=== PATIENT | male | born 1980 | race Caucasian/White ===

== ENCOUNTER 2022-02-28 07:36 | Observation (INO) | payer BC, SELFPAY ==
[2022-02-28 07:37] VITALS: BP 116/64; PULSE 95; RESP 18; TEMP 37.2; O2SAT 96; BMI 30.6
--- NOTE | 2022-02-28 07:46 | CT_ITS ---
STUDY: CT ABDOMEN AND PELVIS WITHOUT CONTRAST REASON FOR EXAM: Male, 41 years old. Right flank pain, fullness, back pain. Severe back pain. RADIATION DOSAGE (If Supplied By Facility): CTDIvol = ( 8.79 ) mGy, DLP = ( 511.88 ) mGycm TECHNIQUE: Transaxial images were obtained from the dome of the diaphragm to the symphysis pubis without oral contrast, and without intravenous contrast. Sagittal and coronal images were reconstructed. Individualized dose optimization techniques were used for this CT. COMPARISON: None. FINDINGS: Minimal degree of right basilar linear atelectasis. The visualized portions of the heart are within normal limits. Normal liver. Normal gallbladder and extrahepatic biliary system. Normal spleen. Normal pancreas. Normal bilateral adrenal glands. Normal right kidney. Normal left kidney. There is a small hiatal hernia. Normal small intestine. There are scattered colonic diverticula consistent with diverticulosis. There are surgical clips in the region of the appendix consistent with a prior appendectomy. Normal abdominal aorta. Normal inferior vena cava. Normal retroperitoneum. Normal urinary bladder. There is a small umbilical hernia containing fat. Multilevel spondylosis of the lumbar spine. There is straightening of the normal lumbar lordosis. Moderate degree of central disc herniation at the L4-L5 level. CT/Abdomen/Pelvis without Cont IMPRESSION: Minimal degree of right basilar linear atelectasis. Straightening of the normal lumbar lordosis. Disc bulge at the L4-L5 level causing moderate degree of central canal stenosis. Electronically Signed: Abner Renner MD at 8:36 EST ,
--- NOTE | 2022-02-28 07:47 | ED.VIS.BACK ---
HPI History of Present Illness Chief Complaint: Back Detail of Chief Complaint: Back pain x3 weeks Informant: patient Narrative Narrative: Patient presents the emergency department complaint of back pain for the last 3 weeks. Patient states that he saw Dr. Jackson in the office and had plain x-rays that show some degenerative changes or degenerative disc disease. Patient has been doing physical therapy x2 and was supposed to do it today. Patient with severe pain today and unable to walk because of the amount of pain that he was having. Patient denies loss of bowel or bladder function. He does describe pain radiating down the back of his leg to about the knee. He has never had issues like this before and has never had surgery on his back. Patient denies any trauma to his back. Pain is 10 out of 10 with any movement. PFSH PFSH Home Medications acetaminophen 500 mg tablet 1,000 - 1,500 mg PO Q6H PRN Pain 02/28/22 [History Last Taken 02/28/22] naproxen sodium 220 mg tablet 220 mg PO DAILY PAIN 02/28/22 [History Last Taken 02/28/22] Allergy/AdvReac Type Severity Reaction Status Date / Time No Known Allergies Allergy Verified 02/28/22 07:39 Surgical History (Updated 02/28/22 @ 07:41 by Imelda Aldana) Hx of appendectomy Social History Smoking Status: Never smoker ROS ROS ED Review of Systems ROS Unobtainable: other Constitutional Constitutional ED: Reports lethargy; Denies chills, fever(s), sweats or weight loss Eyes Eyes: Denies blurry vision, change in vision or diplopia ENT ENT ED: Denies rhinorrhea or sore throat Cardiovascular Cardiovascular: Denies chest pain, orthopnea or racing heartbeat Respiratory/Chest Respiratory/Chest: Denies cough, dyspnea, dyspnea on exertion, orthopnea or sputum Gastrointestinal Gastrointestinal: Denies abdominal pain, diarrhea, nausea or vomiting Genitourinary Genitourinary ED: Denies dysuria, hematuria or urinary frequency Musculoskeletal Musculoskeletal: Reports back pain; Denies arthralgias, myalgias or neck pain Integumentary Denies abscess, Abrasions or rash Neurologic Neurologic: Denies headache(s) or weakness Psychiatric Psychiatric: Denies anxiety, depression or suicidal thoughts Endocrine Endocrinology: Denies polydipsia, polyphagia or polyuria Hematologic/Lymphatic Hematologic/Lymphatic: Denies easy bleeding, easy bruising or lymphadenopathy Allergic/Immunologic Allergic/Immunologic ED: Denies mouth swelling, tongue swelling or urticaria EXAM Physical Exam Const Vital Signs: 02/28/22 07:37 Temperature 99.0 F Temperature Source Temporal Pulse Rate 95 Respiratory Rate 18 Blood Pressure 116/64 Blood Pressure Mean 81 Pulse Ox 96 Oxygen Delivery Method Room Air Positive well nourished and well developed General Appearance ED: well developed and NAD HEENT Reports TM's clear and moist mucous membranes normocephalic and atraumatic; Negative for trauma or tenderness Tympanic Membrane ED: Yes TM's clear Eyes PERRL and EOMs intact bilaterally General Eye ED: Negative for pale conjunctiva or scleral icterus Neck no lymphadenopathy, supple and no JVD General: Negative for tenderness Chest Wall inspection of chest normal and palpation of chest normal Chest: Negative for tenderness Resp normal respiratory effort and clear to auscultation bilaterally Effort and Inspection: Negative for respiratory distress or pain with movement Auscultation: Negative for rhonchi, wheezes or diminished lung sounds Cardio regular rate, regular rhythm, S1 normal heart sound, S2 normal heart sound and no murmurs Peripheral Pulses: pulses 2+ throughout GI normal to inspection, nondistended, normoactive bowel sounds, soft to palpation, non-tender, non-distended and no masses Back/Spine Back/Spine Narrative: Patient with tenderness over the lower lumbar spine over L3, 4 and 5. There is no erythema or warmth noted to his back. There is some fullness to the right paraspinal musculature on the right. Patient does have positive straight leg raises bilaterally and while supine at about 30 degrees. Deep tendon reflexes are plus 2 out of 4 bilaterally at the patella and Achilles. Patient has normal L5 extension bilaterally. Patient has normal sensation to light touch. Good strength both lower extremities. Extremity normal to inspection General Extremety ED: Negative for edema General Extremity: Negative for edema Neuro oriented x3, CN's II-XII intact bilaterally, no sensory deficits noted and gait normal Sensorium / Orientation: awake, alert, oriented to person, oriented to place and oriented to time Motor Exam: strength 5/5 throughout and strength abnormal Psych mental status grossly normal Skin no rashes or lesions noted and no wounds MDM MDM MDM Narrative Medical decision making narrative: IV line established on arrival. Patient was medicated Dilaudid and Zofran. Basic labs were obtained and were normal. CT scan of the abdomen pelvis obtained showed a disc bulge at L4-5 level causing moderate degree of central canal stenosis. Patient continues to experience significant pain. He was given Valium 4 mg p.o. Case discussed with hospitalist will evaluate patient for admission for intractable back pain. Given his symptoms for more than 3 weeks and worsening pain and symptoms felt he may require an MRI during this stay to evaluate further. He has no red flag symptoms of cauda equina currently. Hospitalist will admit. Lab Data Attestation: I reviewed the patient's lab results. Labs: Laboratory Results - last 24 hr 02/28/22 02/28/22 08:09 08:09 WBC 6.7 RBC 5.10 Hgb 16.4 Hct 48.3 MCV 94.7 H MCH 32.2 H MCHC 34.0 RDW Std Deviation 42.6 RDW Coeff of Ce 12.2 Plt Count 192 MPV 10.3 Immature Gran % (Auto) 1.200 H Neut % (Auto) 63.2 Lymph % (Auto) 22.6 [place] % (Auto) 10.6 H Eos % (Auto) 1.8 Baso % (Auto) 0.6 Absolute Neuts (auto) 4.2 Absolute Lymphs (auto) 1.51 Nucleated RBC % 0 Sodium 142 Potassium 4.0 Chloride 110 H Carbon Dioxide 25.0 Anion Gap 7 BUN 20 H Creatinine 0.92 Estim Creat Clear Calc 118.32 Est GFR (MDRD) Af Amer 118 Est GFR (MDRD) Non-Af 98 BUN/Creatinine Ratio 21.8 H Glucose 104 Calcium 8.5 Radiography Diagnostic Testing: Clinical Impression(s) from Imaging Studies Abdomen/Pelvis CT 02/28/22 07:46 IMPRESSION: Minimal degree of right basilar linear atelectasis. Straightening of the normal lumbar lordosis. Disc bulge at the L4-L5 level causing moderate degree of central canal stenosis. Electronically Signed: Abner Renner MD at 8:36 EST , Discharge Plan Triage Chief Complaint: Back ED Provider: Soraya Nixon Dx/Rx/DC Orders Clinical Impression: Intractable back pain, Acute lumbar radiculopathy Prescriptions: No Action acetaminophen 500 mg Tablet 1,000 - 1,500 mg PO Q6H PRN (Reason: Pain) naproxen sodium 220 mg Tablet 220 mg PO DAILY Primary Care Provider: Gutierrez Jackson Referrals: Gutierrez Jackson MD [Primary Care Provider] - Disposition Disposition: Acute Care [facility]
[2022-02-28] MEDS: Ondansetron 4 MG/2 ML Vial IV (08:05)
[2022-02-28] MEDS: 0.9% Normal Saline 1,000 ML 15 ML IV (08:05)
[2022-02-28] MEDS: HYDROcodone Bitartrate/Apap 5/325 Tablet PO (08:05)
[2022-02-28 08:17] LABS: Absolute Lymphocyte Count 1.51 X10^3/uL (0.83-4.51); Absolute Neutrophil Count 4.2 X10^3/uL (2.0-7.7); Basophil# 0.04 X10^3/uL; Basophil% 0.6 % (0-1); Eosinophil# 0.12 X10^3/uL; Eosinophils% 1.8 % (0-5); Hematocrit 48.3 % (40-54); Hemoglobin 16.4 g/dL (13.0-16.5); Lymphocyte # 1.51 X10^3/ul (0.83-4.51); Lymphocyte % 22.6 % (19-41); Mean Corpuscular Hgb 32.2 pg (27.0-32.0); Mean Corpuscular Volume 94.7 fL (80-94); Mean Platelet Vol. 10.3 fl (6.2-12.0); Monocyte# 0.71 X10^3/uL; Monocyte% 10.6 % (0-10); NRBC Flagged by Analyzer 0 % (0-5); Neutrophil # 4.21 X10^3/uL (2.7-7.7); Neutrophil % 63.2 % (47-70); Platelet Count 192 K/mm3 (150-450); RBC Distribution Width CV 12.2 % (11.6-14.6); RBC Distribution Width SD 42.6 fl (35.1-43.9); White Blood Count 6.7 K/mm3 (4.4-11.0)
[2022-02-28 08:32] LABS: Anion Gap 7 (5-15); BUN 20 mg/dL (7-18); BUN/Creat Ratio 21.8 RATIO (10-20); Calcium,Total 8.5 mg/dL (8.5-10.1); Chloride 110 mmol/L (98-107); Creatinine, Serum 0.92 mg/dL (0.70-1.30); EST Glomerular Filtration Rate 98 mL/min (>60); Est Glom Filt Rate - Afr Amer 118 mL/min (>60); Estimated Creatinine Clearance 118.32 ml/min; Glucose 104 mg/dL (74-106); Sodium Level 142 mmol/L (136-145)
[2022-02-28] MEDS: diazePAM 2 MG Tablet 4 MG PO (10:17)
--- NOTE | 2022-02-28 10:19 | MRI_ITS ---
STUDY: MRI LUMBAR SPINE WITHOUT CONTRAST REASON FOR EXAM: Male, 41 years old. SEVERE L4-5 radiculopathy -- suspected herniated disc TECHNIQUE: Standardized fat and water weighted pulse sequences were obtained in the sagittal and axial planes. COMPARISON: CT abdomen and pelvis without contrast 02/28/2022. FINDINGS: T11-T12 and T12-L1: (Sagittal only). Normal endplates. Normal disc height, hydration and morphology. No ventral extradural defects. Normal central canal and bilateral intervertebral neural foramina. Normal lumbar lordosis. There is no substantial scoliosis. Normal conus medullaris that terminates at the T12-L1 disc space level. L1-2: Normal endplates. Normal disc height, hydration and morphology. Normal bilateral facet joints. Normal central canal and bilateral lateral recesses. Normal bilateral intervertebral neural foramina. L2-3: Normal endplates. Normal disc height, hydration and morphology. Normal bilateral facet joints. Normal central canal and bilateral lateral recesses. Normal bilateral intervertebral neural foramina. L3-4: Normal endplates. Normal disc height and morphology. Normal facet joints. Prominent dorsal epidural lipomatosis. Moderately pronounced central canal stenosis with an AP canal diameter of 6 mm. Normal bilateral lateral recesses. Normal bilateral intervertebral neural foramina. L4-5: Normal endplates. Mild disc space height narrowing. Prominent posterior midline disc extrusion with suspicious sequestration causing severe central canal stenosis. Normal facet joints. Normal bilateral lateral recesses. Normal bilateral intervertebral neural foramina. L5-S1: Normal endplates. Normal disc height, hydration and morphology. Normal facet joints. Mild central canal stenosis with an AP canal diameter of 10 mm. Normal bilateral lateral recesses. Mild stenosis of the bilateral intervertebral neural foramina. Normal visualized sacral ala. Normal visualized paraspinous soft tissue structures. MRI/Spine Lumbar (Routine) IMPRESSION: 1. Prominent L4-L5 posterior midline disc extrusion with suspicious disc sequestration. This is causing severe central canal stenosis and near complete obliteration of the central canal. 2. Moderately pronounced central canal stenosis at L3-L4 disc space level with an AP canal diameter of 6 mm. This is secondary to developmentally short pedicles and prominent dorsal epidural lipomatosis. Electronically Signed: Quan Ventura MD at 15:44 EST ,
[2022-02-28 10:20] VITALS: BP 124/75; PULSE 68; RESP 18; TEMP 36.7; O2SAT 96
--- NOTE | 2022-02-28 10:21 | HP.PCM.HOS_ITS ---
HPI - General General Date of Admission: 02/28/22 Date of Service: 02/28/22 Chief Complaint: Severe back pain ongoing for 3 weeks HPI Narrative DAVID LANDAVERDE, is a 41 M with no significant past medical history came to ED with severe back pain ongoing for [address]. [address] Jackson X-ray done which showed degenerative changes and has been doing physical therapy for 2 weeks but today could not get out of the bed, stand or walk therefore was brought to ED by squad. He describes his back pain 10/10, constant but gets exacerbated with spasm on slight movement, radiates from L4-L5 to right buttock region. He denies any trauma. 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 He does not have bladder or bowel incontinence. Sensory and motor function of bladder and bowel intact. No fever. Patient is on Tylenol and naproxen to 20 mg daily as needed which I think is not adequate. Patient had CT lumbar spine which shows degenerative changes and disc bulge at L4-L5 causing moderate degree of central canal stenosis. PFSH Home Medications acetaminophen 500 mg tablet 1,000 - 1,500 mg PO Q6H PRN Pain 02/28/22 [History Last Taken 02/28/22] naproxen sodium 220 mg tablet 220 mg PO DAILY PAIN 02/28/22 [History Last Taken 02/28/22] Allergy/AdvReac Type Severity Reaction Status Date / Time No Known Allergies Allergy Verified 02/28/22 07:39 Surgical History (Updated 02/28/22 @ 07:41 by Imelda Aldana) Hx of appendectomy Social History Smoking Status: Never smoker ROS ROS Narrative Constitutional: Denies fatigue. Severe pain as described in HPI. HEENT: Reports systems reviewed and no addt'l complaints, except as documented Respiratory/Chest: Denies chest pain, shortness of breath at rest or with exertion Gastrointestinal: Denies coffee ground emesis, hematemesis or vomiting Genitourinary: Denies burning urination or new urinary tract symptoms Musculoskeletal: Severe back pain with unable to laterally rotate on lumbar spine. Neurologic: Denies seizure-like activity. No acute focal weakness, numbness tingling or neurological symptoms skin: No ulcer. No rash Endocrinology: Reports systems reviewed and no addt'l complaints, except as documented Hematologic/Lymphatic: Reports systems reviewed and no addt'l complaints, except as documented Rest 14 ROS are negative except as mentioned in HPI Vital Signs Vital Signs Vital Signs: 02/28/22 07:37 Temperature 99.0 F Temperature Source Temporal Pulse Rate 95 Respiratory Rate 18 Blood Pressure 116/64 Blood Pressure Mean 81 Pulse Ox 96 Oxygen Delivery Method Room Air Weight Weight: 225 lb 15.581 oz Body Mass Index (BMI) 30.6 Physical Exam Narrative Physical exam General: Alert, Oriented x3, Cooperative HEENT: Atraumatic, PERRLA, EOMI, Normocephalic Oral: Oral mucosa moist. No Gingival or Mucosal Lesions/ Ulcerations Neck: Supple, No JVD, Negative Carotid Bruits Lungs: Air entry equal in bilateral lung bases. No crepitation/rhonchi Cardiovascular: Regular rate, Regular Rhythm, Normal S1, Normal S2, No murmurs Abdomen: Bowel Sounds Present, Soft, Non Tender, Non-Distended : No renal angle tenderness. No suprapubic tenderness. Extremities: No edema, Capillary Refill Less than 3 Seconds Skin: No rashes, No breakdown Musculoskeletal/spine: Tenderness present over L4-L5 in middle and right side. Tenderness present on right lumbar paraspinal muscle and buttock region. ROM flexion, lateral rotation or extension severely restricted at lumbar spine. SLR positive at 50 0 degrees on LLE and 30 degrees on RLE Neurological: Cranial nerves II-XII grossly intact, DTR 2+/4 and Symmetrical, Neuro grossly intact Psych/Mental Status: Flat affect, in pain Results Lab / Micro Data Result Diagrams: 02/28/22 08:09 02/28/22 08:09 Labs: Laboratory Results - last 24 hr 02/28/22 08:09: WBC 6.7, RBC 5.10, Hgb 16.4, Hct 48.3, MCV 94.7 H, MCH 32.2 H, MCHC 34.0, RDW Std Deviation 42.6, RDW Coeff of Ce 12.2, Plt Count 192, MPV 10.3, Immature Gran % (Auto) 1.200 H, Neut % (Auto) 63.2, Lymph % (Auto) 22.6, [place] % (Auto) 10.6 H, Eos % (Auto) 1.8, Baso % (Auto) 0.6, Absolute Neuts (auto) 4.2, Absolute Lymphs (auto) 1.51, Nucleated RBC % 0 02/28/22 08:09: Sodium 142, Potassium 4.0, Chloride 110 H, Carbon Dioxide 25.0, Anion Gap 7, BUN 20 H, Creatinine 0.92, Estim Creat Clear Calc 118.32, Est GFR (MDRD) Af Amer 118, Est GFR (MDRD) Non-Af 98, BUN/Creatinine Ratio 21.8 H, Gluc ose 104, Calcium 8.5 Radiology Impression Abdomen/Pelvis CT 02/28/22 07:46 IMPRESSION: Minimal degree of right basilar linear atelectasis. Straightening of the normal lumbar lordosis. Disc bulge at the L4-L5 level causing moderate degree of central canal stenosis. Electronically Signed: Abner Renner MD at 8:36 EST , Assessment & Plan Assessment/Plan (1) Acute lumbar radiculopathy: PLAN: Plan This 41-year-old question gentleman is being admitted with 3 weeks of ongoing persistent back pain with intermittent spasm and SLR positive suggestive of possible lumbar herniated disc 1. Right L4-L5 radiculopathy with suspicion of herniated lumbar disc: Patient is being admitted on [facility] floor. MRI lumbar spine ordered. Labs reviewed and no significant abnormality. Vitals in normal limit. IV fluid Ringer lactate. Tylenol, ibuprofen, Flexeril, oxycodone and Dilaudid ordered as per pain scale and muscle spasm. 2. Abnormal CT finding of disc bulge at L4-L5 level and moderate degree of central canal stenosis: We will verify with MRI. Patient has lumbar disc herniation. VT prophylaxis, low risk early ambulation encouraged. PT and OT ordered Full code verified Clinical Impression(s) from Imaging Studies Abdomen/Pelvis CT 02/28/22 07:46 IMPRESSION: Minimal degree of right basilar linear atelectasis. Straightening of the normal lumbar lordosis. Disc bulge at the L4-L5 level causing moderate degree of central canal stenosis. Electronically Signed: Abner Renner MD at 8:36 EST , Charges/Coding Visit Charges OBSV E&M: 54829 Initial observation care L3
[2022-02-28 10:58] VITALS: BMI 30.6
[2022-02-28] MEDS: Pantoprazole Sodium 40 MG Tablet PO (11:27)
[2022-02-28] MEDS: Acetaminophen 500 MG Tablet 1000 MG PO ×2 (11:27→18:37)
[2022-02-28] MEDS: oxyCODONE 5 MG Tablet PO ×3 (11:28→23:02)
[2022-02-28 12:02] VITALS: BP 127/88; PULSE 68; RESP 18; TEMP 36.8; O2SAT 98
[2022-02-28] MEDS: 0.9% Saline Lock 10 ML Syringe IV ×3 (12:14→23:02)
[2022-02-28] MEDS: HYDROmorphone 0.5 MG/0.5 ML SYRINGE IV ×2 (12:14→17:56)
[2022-02-28] MEDS: cycloBENZAPRine HCl 5 MG TABLET PO ×2 (12:44→18:38)
[2022-02-28 13:06] VITALS: O2SAT 98
--- NOTE | 2022-02-28 14:30 | RAD_ITS ---
STUDY: X-RAY - ORBITS REASON FOR EXAM: Male, 41 years old. PRE MRI CLEARANCE, Hx of metal in eyes TECHNIQUE: 2 view(s) of the orbits were obtained. COMPARISON: None. FINDINGS: Normal bilateral orbits without a metallic orbital foreign body. Normal visualized facial bones. Partial opacification of the left maxillary sinus. The soft tissue structures are unremarkable. RAD/Orbits for Foreign Body IMPRESSION: No demonstrated metallic orbital foreign body. The patient is cleared for an MRI examination. Partial opacification of the left maxillary sinus. Electronically Signed: Abner Renner MD at 14:48 EST ,
[2022-02-28] MEDS: Ibuprofen 600 MG Tablet PO (17:56)
[2022-02-28 18:00] VITALS: BP 119/66; PULSE 61; RESP 18; TEMP 37.3; O2SAT 95
[2022-02-28] MEDS: Senna/Docusate Sodium 1 Tablet 2 TABLET PO (23:01)
[2022-02-28] MEDS: Lactated Ringers 1,000 ML 100 ML IV (23:01)
[2022-02-28 23:18] VITALS: BP 128/73; PULSE 58; RESP 18; TEMP 36.8; O2SAT 94
[2022-03-01] MEDS: HYDROmorphone 0.5 MG/0.5 ML SYRINGE IV (01:27)
[2022-03-01] MEDS: Ibuprofen 600 MG Tablet PO ×2 (03:21→11:07)
[2022-03-01] MEDS: Acetaminophen 500 MG Tablet 1000 MG PO ×2 (03:21→11:07)
[2022-03-01] MEDS: cycloBENZAPRine HCl 5 MG TABLET PO ×2 (03:21→11:07)
[2022-03-01 03:23] VITALS: BP 126/86; PULSE 61; RESP 18; TEMP 36.3; O2SAT 95
[2022-03-01] MEDS: oxyCODONE 5 MG Tablet PO ×2 (06:33→12:59)
[2022-03-01] MEDS: Senna/Docusate Sodium 1 Tablet 2 TABLET PO (07:52)
[2022-03-01] MEDS: Pantoprazole Sodium 40 MG Tablet PO (07:52)
[2022-03-01] MEDS: Lactated Ringers 1,000 ML 100 ML IV (07:53)
[2022-03-01 07:55] VITALS: O2SAT 94
[2022-03-01 07:59] VITALS: BP 119/77; PULSE 62; RESP 18; TEMP 36.8; O2SAT 97
--- NOTE | 2022-03-01 10:50 | DCINST_ITS ---
Discharge Instructions Diet Discharge Diet: No restrictions Follow Up Care Test Results: Test results from this visit will be discussed in further detail at your follow- up appointment, if applicable. Discharge Plan Admission Admit Date/Time: 02/28/22 10:02 Primary Reason for Your Visit: L4-L5 disc extrusion with severe canal stenosis Attending Provider: Eyal Nicholson Primary Care Provider: Gutierrez Jackson Instructions Additional Instructions / Restrictions: Advised outpatient PT and [facility]. Discharge Orders/Prescriptions Prescriptions: New acetaminophen 500 mg Tablet 1,000 mg PO Q8H PRN (Reason: severe pain) Qty: 0 0RF ibuprofen 600 mg Tablet 600 mg PO Q8H PRN (Reason: back pain -12/23) Qty: 0 0RF Rx Instructions: After completion of Medrol Dosepak oxycodone 5 mg Tablet 2.5 mg PO Q4H PRN PRN (Reason: Pain Score 4-10) 3 Days Qty: 10 0RF Rx Instructions: 2.5 mg for 4-08/23 pain intensity and 5 mg for 09/22/2009 intensity cyclobenzaprine 5 mg Tablet 5 mg PO Q8H Qty: 30 0RF sennosides-docusate sodium [Stool Softener-Stimulant Laxat] 8.6-50 mg Tablet 2 tab PO BID PRN (Reason: constipation) Qty: 0 0RF pantoprazole 40 mg Tablet,Delayed Release (Dr/Ec) 40 mg PO DAILY Qty: 30 0RF Rx Instructions: Before breakfast methylprednisolone [Medrol (Gonsalo)] 4 mg tablets,dose pack 4 mg PO DAILY Qty: 21 0RF Rx Instructions: Take it as directed. Discontinued acetaminophen 500 mg Tablet 1,000 - 1,500 mg PO Q6H PRN (Reason: Pain) naproxen sodium 220 mg Tablet 220 mg PO DAILY Referrals / Follow Up: Manuel Alvarado DO [Med Staff - Active Staff] - Within 2 Weeks (Follow up 03/10/22) Gutierrez Jackson MD [Primary Care Provider] - Within 1 Week Disposition Disposition (needs filled in before D/C Order can be placed): Home, Self Care
[2022-03-01 11:38] LABS: Bacteria 0 SEEN /hpf (None Seen); Mucous, Urine 0 SEEN /hpf (<or=2+); Red Blood Cells-Urine 0 SEEN /hpf (0-5)
[2022-03-01 12:18] LABS: Color, Urine Yellow (Yellow); Glucose, Dipstick Normal (Normal); Ketone-Dipstick Negative (Negative); Leukocyte Esterase-Dipstick 25 /ul (Negative); Nitrite-Dipstick Negative (Negative); Occult Blood-Urine Negative /ul (Negative); Protein-Dipstick 15 mg/dl (Negative); Urine Bilirubin Dipstick Negative (Negative); Urine Clarity Clear (Clear); Urine Urobilinogen Normal (Normal)
[2022-03-01 12:19] LABS: Squamous Epithelial Cells - UA 0-5 SEEN /hpf (0-5); White Blood Cells 0-5 SEEN /hpf (0-5)
--- NOTE | 2022-03-01 12:46 | DS.PCM_ITS ---
Providers Date of Admission: 02/28/22 Date of Discharge: 03/01/22 Primary Care Physician: Dr. Gutierrez Jackson MD Reason For Visit: SEVERE BACK PAIN Diagnosis Discharge Diagnosis (1) Acute lumbar radiculopathy: Status: Acute Code(s): M54.16 - Radiculopathy, lumbar region Plan This 41-year-old question gentleman is being admitted with 3 weeks of ongoing persistent back pain with intermittent spasm and SLR positive suggestive of possible lumbar herniated disc 1. Right L4-L5 radiculopathy with suspicion of herniated lumbar disc: Patient is being admitted on [facility] floor. MRI lumbar spine ordered. Labs reviewed and no significant abnormality. Vitals in normal limit. IV fluid Ringer lactate. Tylenol, ibuprofen, Flexeril, oxycodone and Dilaudid ordered as per pain scale and muscle spasm. 03/01: MRI lumbar spine was done which shows prominent L4-5 posterior midline disc extrusion with suspicious disease sequestration causing severe canal stenosis and and near complete obliteration of central canal. Moderately pronounced central canal stenosis at L3-4 disc space level and AP canal diameter of 6 mm. I reviewed the MRI finding with the patient and the . I further discussed with the spine surgeon Dr. Alvarado who is outside town. Patient pain level is better with NSAID Motrin, Flexeril and opioid medication. Patient is able to stand and go to bathroom with assistance from and physical therapy. Dr. Alvarado said he can see the patient on 03/10 and advised to discharge on Medrol Dosepak and opioid and Flexeril. Patient advised to start Motrin after the completion of Medrol Dosepak. Prescription given for Medrol Dosepak, oxycodone 5 mg total 10 tablets, Flexeril and pantoprazole. Patient does not have prior prescription of controlled substances. OARSS reviewed. Patient and his agreeable for discharge plan and wants to follow-up. Outpatient PT prescription signed 2. 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 Before that patient had CT abdomen/pelvis. Abnormal CT finding of disc bulge at L4-L5 level and moderate degree of central canal stenosis: We will verify with MRI. Patient has lumbar disc herniation. VT prophylaxis, low risk early ambulation encouraged. PT and OT ordered Full code verified Discharge medication reconciliation done. Discharge follow-up instructions completed. Discharge process discussed with the patient and all questions were answered to patient's satisfaction. Total time spent, exact 35 minutes on discharge meds reconciliation, examin ation, coordination of care with nurses and ancillary staff, review of imaging and blood test and discussion with the patient on follow-up instructions. Clinical Impression(s) from Imaging Studies Abdomen/Pelvis CT 02/28/22 07:46 IMPRESSION: Minimal degree of right basilar linear atelectasis. Straightening of the normal lumbar lordosis. Disc bulge at the L4-L5 level causing moderate degree of central canal stenosis. Electronically Signed: Abner Renner MD at 8:36 EST , Lumbar Spine MRI 02/28/22 10:19 IMPRESSION: 1. Prominent L4-L5 posterior midline disc extrusion with suspicious disc sequestration. This is causing severe central canal stenosis and near complete obliteration of the central canal. 2. Moderately pronounced central canal stenosis at L3-L4 disc space level with an AP canal diameter of 6 mm. This is secondary to developmentally short pedicles and prominent dorsal epidural lipomatosis. Electronically Signed: Quan Ventura MD at 15:44 EST , Clinical Impression(s) from Imaging Studies Abdomen/Pelvis CT 02/28/22 07:46 IMPRESSION: Minimal degree of right basilar linear atelectasis. Straightening of the normal lumbar lordosis. Disc bulge at the L4-L5 level causing moderate degree of central canal stenosis. Electronically Signed: Abner Renner MD at 8:36 EST , Medications at Discharge Home Medications acetaminophen 500 mg tablet 1,000 mg PO Q8H PRN severe pain #0 tabs 03/01/22 cyclobenzaprine 5 mg tablet 5 mg PO Q8H #30 tabs 03/01/22 ibuprofen 600 mg tablet 600 mg PO Q8H PRN back pain 6-10/10 #0 tabs 03/01/22 methylprednisolone 4 mg tablets in a dose pack (Medrol (Gonsalo)) 4 mg PO DAILY #21 tabs 03/01/22 oxycodone 5 mg tablet 2.5 mg PO Q4H PRN PRN Pain Score 4-10 3 days #10 tabs 03/01/22 pantoprazole 40 mg tablet,delayed release 40 mg PO DAILY #30 tabs 03/01/22 sennosides 8.6 mg-docusate sodium 50 mg tablet (Stool Softener-Stimulant Laxative) 2 tab PO BID PRN constipation #0 tabs 03/01/22 Physical Exam Narrative Physical exam General: Alert, Oriented x3, Cooperative HEENT: Atraumatic, PERRLA, EOMI, Normocephalic Oral: Oral mucosa moist. No Gingival or Mucosal Lesions/ Ulcerations Neck: Supple, No JVD, Negative Carotid Bruits Lungs: Air entry equal in bilateral lung bases. No crepitation/rhonchi Cardiovascular: Regular rate, Regular Rhythm, Normal S1, Normal S2, No murmurs Abdomen: Bowel Sounds Present, Soft, Non Tender, Non-Distended : No renal angle tenderness. No suprapubic tenderness. Extremities: No edema, Capillary Refill Less than 3 Seconds Skin: No rashes, No breakdown Musculoskeletal/spine: Tenderness present over L4-L5 in middle and right side and right lumbar paraspinal muscle and buttock region. ROM flexion, lateral rotation or extension restricted at lumbar spine. Patient able to stand up and put weight on legs and walk to bathroom. Neurological: Cranial nerves II-XII grossly intact, DTR 2+/4 and Symmetrical, Neuro grossly intact Psych/Mental Status: Flat affect, in pain Weight / BMI Weight Weight: 217 lb 9.6 oz Body Mass Index (BMI) 30.6 ABG / Lab / Microbiology Data Result Diagrams: 02/28/22 08:09 02/28/22 08:09 Laboratory: Laboratory Results - last 24 hr 03/01/22 11:20: Urine Color Yellow, Urine Clarity Clear, Urine pH 7.0, Ur Specific [place] 1.010, Urine Protein 15 H, Urine Glucose (UA) Normal, Urine Ketones Negative, Urine Occult Blood Negative, Urine Nitrite Negative, Urine Bilirubin Negative, Urine Urobilinogen Normal, Ur Leukocyte Esterase 25 H, Urine RBC 0 SEEN, Urine WBC 0-5 SEEN, Ur Squamous Epith Cells 0-5 SEEN, Urine Bacteria 0 SEEN, Urine Mucus 0 SEEN Radiography Diagnostic Testing: Radiology Impression Lumbar Spine MRI 02/28/22 10:19 IMPRESSION: 1. Prominent L4-L5 posterior midline disc extrusion with suspicious disc sequestration. This is causing severe central canal stenosis and near complete obliteration of the central canal. 2. Moderately pronounced central canal stenosis at L3-L4 disc space level with an AP canal diameter of 6 mm. This is secondary to developmentally short pedicles and prominent dorsal epidural lipomatosis. Electronically Signed: Quan Ventura MD at 15:44 EST , Orbit X-Ray 02/28/22 14:30 IMPRESSION: No demonstrated metallic orbital foreign body. The patient is cleared for an MRI examination. Partial opacification of the left maxillary sinus. Electronically Signed: Abner Renner MD at 14:48 EST , D/C Instructions Discharge Diet: No restrictions Meaningful Use Info Meaningful Use Diagnoses (Choose all that apply): None applicable Discharge Plan Admission Admit Date/Time: 02/28/22 10:02 Primary Reason for Your Visit: L4-L5 disc extrusion with severe canal stenosis Attending Provider: Eyal Nicholson Primary Care Provider: Gutierrez Jackson Instructions Additional Instructions / Restrictions: Advised outpatient PT and [facility]. Discharge Orders/Prescriptions Prescriptions: New acetaminophen 500 mg Tablet 1,000 mg PO Q8H PRN (Reason: severe pain) Qty: 0 0RF ibuprofen 600 mg Tablet 600 mg PO Q8H PRN (Reason: back pain 6-10/10) Qty: 0 0RF Rx Instructions: After completion of Medrol Dosepak oxycodone 5 mg Tablet 2.5 mg PO Q4H PRN PRN (Reason: Pain Score 4-10) 3 Days Qty: 10 0RF Rx Instructions: 2.5 mg for -08/23 pain intensity and 5 mg for 09/22/2009 intensity cyclobenzaprine 5 mg Tablet 5 mg PO Q8H Qty: 30 0RF sennosides-docusate sodium [Stool Softener-Stimulant Laxat] 8.6-50 mg Tablet 2 tab PO BID PRN (Reason: constipation) Qty: 0 0RF pantoprazole 40 mg Tablet,Delayed Release (Dr/Ec) 40 mg PO DAILY Qty: 30 0RF Rx Instructions: Before breakfast methylprednisolone [Medrol (Gonsalo)] 4 mg tablets,dose pack 4 mg PO DAILY Qty: 21 0RF Rx Instructions: Take it as directed. Discontinued acetaminophen 500 mg Tablet 1,000 - 1,500 mg PO Q6H PRN (Reason: Pain) naproxen sodium 220 mg Tablet 220 mg PO DAILY Referrals / Follow Up: Manuel Avlarado DO [Med Staff - Active Staff] - Within 2 Weeks (Follow up 03/10/22) Gutierrez Jackson MD [Primary Care Provider] - Within 1 Week Disposition Disposition (needs filled in before D/C Order can be placed): Home, Self Care Charges/Coding Visit Charges OBSV E&M: 20099 Observation care discharge
[2022-03-01 13:16] VITALS: BP 136/85; PULSE 74; RESP 18; TEMP 36.8; O2SAT 97
== END 2022-03-01 13:28 | disposition home or self-care (01) ==
LOC: ED 10:30 → MS3 10:48
PROVIDERS: Admitting Provider Internal Medicine; Emergency Provider Emergency Medicine; PCP Family Medicine; Visit Provider Internal Medicine
DX: M51.16 Intervertebral disc disorders with radiculopathy, lumbar region (principal); M48.061 Spinal stenosis, lumbar region without neurogenic claudication; M54.16 Radiculopathy, lumbar region
CPT/HCPCS: 70030; 72148; 74176; 80048; 81001; 85025; 96361; 96374; 96375; 96376; 97161; 97166; 99218; 99251; 99285; J7030; J7120; A4216; G0378; G0463; J2405